=== PATIENT | female | born 1955 | race Caucasian/White ===

== ENCOUNTER 2024-10-28 07:39 | Observation (INO) ==
--- NOTE | 2024-10-13 10:13 | PAT Medication Instructions ---
Medication Instructions Date of Service October 13, 2024 Home Medications cholecalciferol (vitamin D3) 25 mcg (1,000 unit) capsule 25 mcg PO HS aspirin 81 mg chewable tablet 81 mg PO HS magnesium carb,citrate,oxide (Magnesium Complex) 600 mg PO HS multivitamin 1 tab PO HS phytosterol 300 mg-pantethine 100 mg capsule (CholestOff Complete) 1 cap PO HS turmeric root extract 500 mg tablet 500 mg PO HS ASK your prescriber and surgeon aspirin 81 mg chewable tablet 81 mg PO HS STOP taking 2 weeks before surgery (or as soon as possible if surgery is within 2 weeks) phytosterol 300 mg-pantethine 100 mg capsule (CholestOff Complete) 1 cap PO HS turmeric root extract 500 mg tablet 500 mg PO HS Take evening before surgery cholecalciferol (vitamin D3) 25 mcg (1,000 unit) capsule 25 mcg PO HS magnesium carb,citrate,oxide (Magnesium Complex) 600 mg PO HS multivitamin 1 tab PO HS MORNING OF SURGERY: NOTHING TO EAT OR DRINK AFTER MIDNIGHT Other Notes If you have any questions please call us at [phone] or [phone] or [phone] or [phone]
--- NOTE | 2024-10-14 14:39 | Anesthesiology Consultation ---
Date of Service October 14, 2024 Assessment & Plan (1) Encounter for pre-operative examination: - Infectious disease screening: Per assessment on 10/14/24- No known recent infectious disease contacts or current infectious disease symptoms. - Outpatient joint assessment: Pt currently scheduled for inpatient pathway. If surgeon requests review for outpatient joint pathway, patient is not recommended candidate for outpatient joint program from anesthesia standpoint based on available information. - Patient acceptable risk for surgery pending surgeon-ordered PCP preop evaluat ion ([facility], appt 10/19). Chart Review Chart Review: Patient seen in Pre Admission Testing Teaching & Discussion Pre-Anesthesia Teaching/Discussion Notes: Instructed NPO after midnight before surgery,except medications with 15 cc of water. Medication instructions provided according to the PAT guidelines. History Surgery Operation Date: 10/28/24 11:55 Proposed Procedures p Right Total Knee Arthroplasty - Ritchie Jarrell MD Height/Weight Height: 5 ft 4 in Weight: 119.7 kg Allergies Allergy/AdvReac Type Severity Reaction Status Date / Time No Known Allergies Allergy Verified 10/13/24 08:13 Medications Home Medications Medication Instructions Recorded Confirmed Last Taken cholecalciferol (vitamin D3) 25 25 mcg PO HS 09/07/24 10/13/24 Unknown mcg (1,000 unit) capsule aspirin 81 mg chewable tablet 81 mg PO HS 10/13/24 10/13/24 Unknown magnesium carb,citrate,oxide 600 mg PO HS 10/13/24 10/13/24 Unknown (Magnesium Complex) multivitamin 1 tab PO HS 10/13/24 10/13/24 Unknown phytosterol 300 mg-pantethine 100 1 cap PO HS 10/13/24 10/13/24 Unknown mg capsule (CholestOff Complete) turmeric root extract 500 mg tablet 500 mg PO HS 10/13/24 10/13/24 Unknown Past Medical History Medical History Morbid obesity Urinary incontinence Exercise / Class Metabolic Activity II 4-5 Yardwork/Stairs/Walk up hill (one FS: No CP, no SOB) Past Family History Family History Father Diabetes Father Hypertension Heart disease Kidney disease Mother Heart disease Sister Kidney transplanted Brother Prostate cancer Lung cancer Colorectal cancer Denies family history of Ovarian cancer Myocardial infarction Breast cancer Past Surgical History Surgical History Finger amputation, no complication right, first finger History of ankle surgery right- pins and screw due to fracture History of cataract surgery B/L History of cholecystectomy History of ear surgery x2 History of tonsillectomy and adenoidectomy Hx of colonoscopy Hx of varicose vein ligation vein ablation on bilat. legs Past Anesthesia History No Hx of Anesthesia Complications and No Family Hx of Anesthesia Complications History of PONV No Hx of PONV and No Hx of Motion Sickness Social History Smoking Status: Never smoker Do You Dip or Chew Tobacco: No Hx Alcohol Use: Yes Alcohol type: wine alcohol intake frequency: holidays/special occasions only Hx Substance Use: No substance use type: does not use Review of Systems Patient denies chest pain, shortness of breath, dyspnea on exertion, fever, chills, cough, wheezing, palpitations. Physical Exam Vital Signs BP 144/79 P 70 TEMP 98.1 SP02 96%RA RESP 16 Physical Full cervical extension range of motion. Full TMJ range of motion. TMD > 3.5 finger breaths Mallampati Score II Dentition: missing sides/molars Lungs: clear throughout to auscultation Cardiac: regular rate and rhythm, no murmurs noted Spine: normal Carotid arteries: negative bruit Extremities: no LE edema Lab Results Anesthesia Preop Results Results Anesthesia Widget: WBC 4.53 K/ul (4.8-10.8) L 10/14/24 Hgb 12.7 g/dl (12.0-16.0) 10/14/24 Hct 39.5 % (37.0-47.0) 10/14/24 Plt 193 K/uL (130-400) 10/14/24 Na 140 mmol/L (136-145) 10/14/24 K 4.3 mmol/L (3.5-5.1) 10/14/24 Cl 106 mmol/L (98-107) 10/14/24 CO2 29 mmol/L (21-32) 10/14/24 BUN 24 mg/dl (6-23) H 10/14/24 Creat 0.88 mg/dl (0.6-1.2) 10/14/24 Glucose Level 86 mg/dl (70-99(Fasting)) 10/14/24 PT 10.5 Seconds (9.0-12.0) 10/14/24 PTT 26 Seconds (21-31) 10/14/24 INR 1.0 (0.9-1.1) 10/14/24 Urine Color Yellow 10/14/24 Urine Appearance Clear (Clear) 10/14/24 Urine pH 5.5 (4.5-7.5) 10/14/24 Urine Specific Emblem 1.027 (1.000-1.030) 10/14/24 Urine Protein Trace (Negative) H 10/14/24 Urine Glucose (UA) Negative (Negative) 10/14/24 Urine Ketones Negative (Negative) 10/14/24 Urine Blood Negative (Negative) 10/14/24 Urine Nitrite Negative (Negative) 10/14/24 Urine Bilirubin Negative (Negative) 10/14/24 Urine Urobilinogen Negative (Negative) 10/14/24 Urine Leukocyte Esterase Negative (Negative) 10/14/24 Urine WBC (Auto) 0-5 /hpf (0-5) 10/14/24 Urine RBC (Auto) 0-2 /hpf (0-2) 10/14/24 Urine Hyaline Casts (Auto) 0-2 /lpf (0-2) 10/14/24 Urine Epithelial Cells (Auto) 3-5 /hpf (0-2) H 10/14/24 Urine Bacteria (Auto) None Seen (None Seen) 10/14/24 Blood Type A Positive 10/14/24 Antibody Screen NEGATIVE 10/14/24 Testing Electrocardiogram Date: 10/14/24 NSR at 68bpm. Low voltage QRS. Chest X-Ray Date: 10/14/24 FINDINGS: Mild cardiomegaly. Pulmonary vasculature appear within normal limits. Chronic appearing interstitial markings. No infiltrate, pleural effusion or pneumothorax. No acute osseous abnormality evident. IMPRESSION: No acute cardiopulmonary process.
--- NOTE | 2024-10-25 13:30 | History & Physical Report ---
Date of Service October 25, 2024 Assessment & Plan (1) Bilateral primary osteoarthritis of knee: Plan: Patient is scheduled for staged bilateral knee replacement starting with the right knee with right knee replacement on this admission. History of Present Illness Chief Complaint: Severe bilateral knee pain Primary Care Provider: NEGRO Mortensen 69-year-old female with chronic progressive osteoarthritis in both of her knees. She has failed conservative management including steroid injections Visco suppl ement injections, exercise program. Patient denies headaches, sweats, fevers, chills, double vision, blurred vision, cough, sore throat, dysphagia, chest pain, sob, wheezing, n/v/d/c, numbness, tingling, fatigue, urinary symptoms, mood disorders. Allergies Allergy/AdvReac Type Severity Reaction Status Date / Time No Known Allergies Allergy Verified 10/19/24 14:57 Home Medications Medication Instructions Recorded Confirmed Type cholecalciferol (vitamin D3) 25 25 mcg PO HS 09/07/24 10/19/24 History mcg (1,000 unit) capsule aspirin 81 mg chewable tablet 81 mg PO HS 10/13/24 10/19/24 History magnesium carb,citrate,oxide 600 mg PO HS 10/13/24 10/19/24 History (Magnesium Complex) multivitamin 1 tab PO HS 10/13/24 10/19/24 History phytosterol 300 mg-pantethine 100 1 cap PO HS 10/13/24 10/19/24 History mg capsule (CholestOff Complete) Past Med/Surg History Problem List (Updated 10/25/24 @ 13:29 by Ritchie Jarrell MD) Bilateral primary osteoarthritis of knee Encounter for pre-operative examination Medical History Morbid obesity Urinary incontinence Surgical History Hx of varicose vein ligation vein ablation on bilat. legs Hx of colonoscopy History of cataract surgery B/L Finger amputation, no complication right, first finger History of ankle surgery right- pins and screw due to fracture History of cholecystectomy History of ear surgery x2 History of tonsillectomy and adenoidectomy Family History Father Diabetes Father Hypertension Heart disease Kidney disease Mother Heart disease Sister Kidney transplanted Brother Prostate cancer Lung cancer Colorectal cancer Denies family history of Ovarian cancer Myocardial infarction Breast cancer Social History Smoking Status: Never smoker Second Hand Exposure: No; Do You Dip or Chew Tobacco: No; Tobacco Cessation Education Requested by Patient: No Hx Alcohol Use: Yes Alcohol type: wine Hx Substance Use: No Preferred Language: Mohawk Communication Ability: Effective Visual Impairment: No Limitations Hearing Ability: Hard of Hearing Academic Intern Required: No Beliefs That Will Affect Care: None marital status: Current Living Situation: Spouse Current Living Situation Comment: and daughter current occupational status: 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, 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, 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 Other Information That Helps Us Care for You: No Feels Safe at Home: Yes Safety Concerns: Feels Safe At This Time Childhood Exposure to Second-Hand Smoke: No Dental Care, Regularly: Yes Sunscreen Use: Yes Assistive Devices: Cane and Glasses Assistive Devices Comment: reading glasses prn Review of Systems All systems reviewed & are unremarkable except as noted in HPI & below Physical Exam Constitutional: WD/WN, vitals as above Respiratory: normal respiratory effort; no respiratory distress Cardiovascular: Rate/Rhythm: regular rate and regular rhythm Musculoskeletal: Knee exam demonstrates bilateral varus knees with moderate swelling and knee effusions with crepitation patellofemoral joint and medial joint line tenderness bilaterally with 15 to 100 degrees on the right knee and 0 to through 110 degrees range of motion on the left knee. Patient has some venous stasis disease without venous stasis dermatitis with varicose veins bilaterally and otherwise normal neurovascular exam. Skin: no rashes, warm and dry Neurologic: normal touch/pain/proprioception Psychiatric: A+Ox3, euthymic affect Results & Data Diagnostic Findings Radiographs demonstrate [id number] medial compartment bilaterally with some subluxation of the femur medially on the tibia of the right knee. There are moderate patellofemoral osteoarthritis with patellofemoral osteophytes bilaterally. Soft tissue obesity.
[~2024-10-28 07:39] MED LIST: BUPIVACAINE 0.5 % 5 MG/1 ML PF 10ML VIAL ONE; DEXAMETHASONE SOD INJ 4 MG/ML VIAL ONE; LIDOCAINE 2% 2 ML VIAL/AMP(20MG/ML) INFIL ONE; MIDAZOLAM HCL 1 MG/ML 2ML VIAL ONE; ONDANSETRON INJ 2 MG/ML 2 ML VIAL ONE; PROPOFOL IV EMULSION 10 MG/ML 20 ML VIAL IV ONE; ROPIVACAINE 0.5% 5 MG/ML 30 ML VIAL ONE; fentaNYL citrate PF 100 MCG/2 ML VIAL ONE
--- NOTE | 2024-10-28 07:59 | History & Physical Bridge Note ---
Date of Service October 28, 2024 History & Physical Bridge Note I have examined the patient, reviewed the History & Physical and in the interval since the performance of the History & Physical I have noted the following changes of clinical significance: no changes noted
[2024-10-28] MEDS: LR 60ML/HR IV SCH (08:35)
[2024-10-28] MEDS: ACETAMINOPHEN 500 MG TAB PO SCH ×2 (08:35→15:24)
[2024-10-28] MEDS: FAMOTIDINE 20 MG TAB PO SCH (08:36)
[2024-10-28] MEDS: METOCLOPRAMIDE HCL 10 MG TABLET PO SCH (08:36)
[2024-10-28] MEDS: SODIUM CHLORIDE 0.9% 1,000 ML IV SCH (08:36)
[2024-10-28] MEDS: GABAPENTIN 300 MG CAP PO SCH (08:36)
[2024-10-28] MEDS: dexAMETHasone**PF** 10 MG/ML VIAL IV SCH (08:36)
[2024-10-28] MEDS: CeleBREX 200 MG CAP PO SCH (08:36)
[2024-10-28] MEDS: TRANEXAMIC ACID 1,000 MG **IV Pre-op IV SCH (10:32)
[2024-10-28] MEDS: ceFAZolin 3000MG 3,000 MG/72.5 ML BAG IV SCH (10:43)
[2024-10-28] MEDS: ROPIVACAINE 0.5% HCL/PF 246 MG, Ketorolac (*for OR use only*) 30 MG in SODIUM CHLORIDE ... INFIL SCH (11:27)
[2024-10-28] MEDS: ORTHO JOINT ANESTHETIC ONE (11:27)
[2024-10-28] MEDS: TRANEXAMIC ACID 1,000 MG **IV Intra-op IV SCH (13:12)
--- NOTE | 2024-10-28 13:16 | Post Operative Brief Note ---
Immediate Post Op Note Date of Surgery October 28, 2024 Pre & Post Diagnosis Operation Date: 10/28/24 09:45 Pre-Op Diagnosis: Right Knee Osteoarthritis, morbid obesity BMI 46.0 Post-Op Diagnosis: Right Knee Osteoarthritis, morbid obesity BMI 46.0 I identified the patient and participated in the time-out.: Yes Procedure Operation Date: 10/28/24 09:45 Actual Procedures p Right Total Knee Arthroplasty(Right), application hossein and Acticoat superficial wound VAC, increased difficulty morbid obesity BMI 46.0- Ritchie Jarrell MD Surgeon Ritchie Jarrell MD Customer Service Trainer Amandeep OLVERA Estimated Blood Loss 10 Findings Consistent with Post-Op Diagnosis Specimens Bone cuts Drains Hemovac Drain Anesthesia Type MAC Spinal Regional Complications none Disposition Disposition: Recovery Room Overlapping Procedure I was present for: the critical portions of procedure.
--- NOTE | 2024-10-28 14:34 | XRay Report ---
XR knee RT 1 or 2V routine CLINICAL HISTORY: Surgical Post Op COMPARISON: None FINDINGS: Alignment of the total right knee arthroplasty is anatomic. There is no periprosthetic fra cture or unexpected radiopaque foreign body. Drains and skin heather are present. IMPRESSION: Expected findings following total right knee arthroplasty. ACT 112: Negative or not required by law. Electronically signed by: Dony Kilgore M.D. 10/28/2024 2:33 PM
--- NOTE | 2024-10-28 14:38 | Anesthesiology Progress Note ---
Date of Service October 28, 2024 Anesthesia Post Procedure Vital Signs Vital Signs: Temp Pulse Resp BP Pulse Ox O2 Del Method 10/28/24 14:35 60 12 104/60 94 Room Air 10/28/24 14:25 58 L 12 112/70 92 Room Air 10/28/24 14:15 61 13 117/67 92 Room Air 10/28/24 14:05 59 L 12 111/65 93 Room Air 10/28/24 13:55 36.4 C L 63 12 104/69 95 Room Air 10/28/24 08:00 36.5 C 71 20 146/81 H 96 Room Air Pain Intensity Right Knee: Pain Intensity: 9 Notes Mental Status: alert / awake / arousable Patient Amnestic to Procedure: Yes Nausea / Vomiting: adequately controlled Pain: adequately controlled Airway Patency, RR, SpO2: stable & adequate BP & HR: stable & adequate Hydration State: stable & adequate Neuraxial Anesthesia: was administered and sensory block is resolving Anesthetic Complications: no major complications apparent
[2024-10-28] MEDS ORDERED: HYDROmorphone INJ 0.5 MG/0.5 ML SYR IV PRN (14:55)
[2024-10-28] MEDS ORDERED: bisacodyL 10 MG SUPP PR PRN (14:55)
[2024-10-28] MEDS ORDERED: diphenhydrAMINE Capsule 25 MG CAP PO PRN (14:55)
[2024-10-28] MEDS ORDERED: ALUMINUM/MAGNESIUM SUSP 30 ML UDC PO PRN (14:55)
[2024-10-28] MEDS ORDERED: MAGNESIUM HYDROXIDE SUSP 30 ML UDC PO PRN (14:55)
[2024-10-28] MEDS ORDERED: NALOXONE HCL 0.4 MG/1 ML VIAL/CARP IV PRN (14:55)
[2024-10-28] MEDS ORDERED: ONDANSETRON INJ 2 MG/ML 2 ML VIAL IV PRN (14:55)
[2024-10-28] MEDS ORDERED: METOCLOPRAMIDE HCL INJ 5 MG/ML 2 ML VIAL IV PRN (14:55)
[2024-10-28] MEDS: LR 500ML BOLUS, THEN 15ML/HR IV SCH (15:13)
[2024-10-28] MEDS: oxyCODONE HCL IR 5 MG TAB (IMMEDIATE RELEASE) PO PRN (16:58)
--- NOTE | 2024-10-28 17:45 | Operative Report ---
Post Operative Report Pre & Post Diagnosis Operation Date: 10/28/24 09:45 Pre-Op Diagnosis: Right Knee Osteoarthritis, morbid obesity BMI 46.0 Post-Op Diagnosis: Right Knee Osteoarthritis I identified the patient and participated in the time-out.: Yes Procedure Operation Date: 10/28/24 09:45 Actual Procedures p Right Total Knee Arthroplasty(Right), coco and Acticoat superficial wound VAC application, increased difficulty more obesity BMI 46.0- Ritchie Jarrell MD Surgeon Ritchie Jarrell MD Data Analysis Intern Amandeep OLVERA Estimated Blood Loss 10 Findings Consistent with Post-Op Diagnosis Specimens Bone cuts Drains 2 Hemovac Anesthesia Type MAC Spinal Regional Complications none Disposition Disposition: Recovery Room Indications 69-year-old female with severe bilateral knee osteoarthritis failed conservative management. Radiographs demonstrate she has patellofemoral medial compartment osteoarthritis [id number] medial compartment both knees with varus knees. Patient here for staged bilateral knee replacement starting with the right knee. Description of Procedure Patient taken to the operating room the size under spinal MAC regional block anesthesia. Patient was placed supine on the operating table. A pneumatic tourniquet was placed about the right obese upper thigh. The right lower extremity was prepped and draped in sterile fashion. Knee exam demonstrated very obese leg with 0 through 80 degrees range of motion and no pseudolaxity or instability.. The leg was elevated exsanguinated with an Esmarch bandage and pneumatic tourniquet was raised to 350 millimeters of mercury. Skin incised sharply in longitudinal fashion. Subcutaneous flaps elevated. Incision was made through the medial retinaculum extending up in the mid third of the quadriceps tendon and down to the medial tibial tubercle. Intra-articular findings demonstrated medial compartment and patellofemoral osteoarthritis with [id number] medial compartment and some tricompartmental arthritis with fairly large patellofemoral osteophytes.. The [employer] total knee arthroplasty system was used. To expose the knee the infrapatellar fat pad was resected. The meniscal remnants and cruciate ligaments were resected. The anterior fat pad over the femur in the area of the location of the anterior flange of the femoral component was resected. The lateral synovial bands were released. The femur was exposed. An intramedullary drill hole was made into the canal. A guide butch was placed. Distal femoral cutting guide was adjusted to resect a 5 degree valgus cut with 8 millimeters distal femur resected. The knee was extended and a subperiosteal peel lateral release was performed around the patella. Patella width was measured and width was reproduced using a freehand cut technique and a 33 x 9 symmetrical patella component. The 3 drill holes were made and the excess lateral facet was beveled off to prevent any imp ingement. Attention was taken back to the femur which was exposed with retractors and the femoral sizing guide was pinned in position. The drill holes were placed in 3 of external rotation to match the epicondylar axis. The femur sized for a 4 component. This required using the +1.5 offset guide to create a more anterior cut in order to prevent notching. The medial lateral width was more appropriately sized for than 5. The the size 4-in-1 cutting block was then placed and then the anterior posterior and chamfer cuts are made. The tibia was then subluxed. The external tibial cutting guide was adjusted to make a perpendicular cut to the long axis of the tibia below the most deficient bone loss side. Cut was adjusted for slope. A lamina microbiological laboratory technician was used and the flexion extension gaps were balanced. Minor medial releases were required. All posterior osteophytes removed. All meniscal remnants were resected. The tibia exposed and the trial tibial component size 4 was externally rotated in line with the tibial tubercle and pinned in position. The drill and punch for stem was used. The notch cutting device was centered appropriately and the femoral notch cut was made. The femoral trial was inserted. Trial tibial inserts were placed and size 9 gave balanced ligaments through flexion and extension. Patella tracking was assessed. The patella tracked centrally. The trial components were then removed and the orthomix anesthetic cocktail was injected per protocol. The knee was then copiously irrigated with pulsatile lavage saline solution. Final components were then cemented with Refobacin cement. Xperience irrigation placed over metal compoments prior to polyethylene insertion. Final components were [employer] triathlon size 4 right posterior stabilized femoral component, a 4 universal tibial baseplate with a cemented stem and a 4 x 9 mm X.3 polyethylene tibial bearing insert which is posterior stabilized.. After the cement cured further pulsatile lavage irrigation was then performed with Xperience and 2 Hemovac drains were brought out laterally. The distal quadriceps tendon and medial retinaculum were repaired with [id number] #2 FiberWire sutures and an additional [id number] #2 FiberWire suture was placed at the apex of the quadriceps tendon split and another at the level of the tibial polyethylene below the patella. A 0 strata fix running locking suture was placed from the superior quadriceps tendon closure down to the inferior pole the patella and then the inferior most medial retinaculum below the patella was repaired with [id number] #1 Vicryl sutures. The knee was taken through full range of motion and the repair was secure. Knee range of motion was 0 through 130 degrees. The subcutaneous tissues were closed with 2-0 Vicryl sutures. Skin was closed with surgical heather. Coco and Acticoat superficial wound VAC was applied. There was 30- minute increased length of time due to her morbid obesity with increased di fficulty of the procedure including all aspects of the procedure. The patient tolerated the procedure well. Amandeep OLVERA was my physician retail event assistant who participated as executive assistant and was involved in all aspects of the procedure including patient positioning prepping and draping,leg positioning ,soft tissue retraction and instrument management and participated in the closing and super ficial wound VAC application and will participate in postoperative care of the patient. The patient tolerated the procedure well. I attest to the content of the Intraoperative Record and any orders documented therein. Any exceptions are noted below.
[2024-10-28 18:14] VITALS: RESP 16
[2024-10-28] MEDS: ceFAZolin 2000MG 2,000 MG/15 ML SYR IV SCH (18:38)
[2024-10-28] MEDS: TRANEXAMIC ACID / 0.7% NACL 1,000 MG/100 ML BAG IV SCH (18:45)
[2024-10-28] MEDS: DOCUSATE SODIUM 100 MG CAP PO SCH (20:35)
[2024-10-28] MEDS: SENNA 8.6 MG TAB PO SCH (20:36)
[2024-10-28] MEDS: MULTIVITAMIN TAB PO SCH (20:36)
[2024-10-28] MEDS: CHOLECALCIFEROL 25 MCG (1000 UNITS) TAB PO SCH (20:37)
[2024-10-28] MEDS: MAGNESIUM OXIDE 400 MG TAB PO SCH (20:37)
[2024-10-28] MEDS ORDERED: PANTETHINE PO SCH (21:00)
[2024-10-28] MEDS ORDERED: PHYTOSTEROL PO SCH (21:00)
[2024-10-28] MEDS ORDERED: [UNRECOGNIZED DRUG - OTHER] PO SCH (21:00)
[2024-10-28] MEDS: KETOROLAC TROMETHAMINE 15 MG/ML VIAL IV PRN (23:25)
[2024-10-29 07:16] LABS: Hematocrit (blood only) 31.6 % (37.0-47.0); Hemoglobin 10.8 g/dl (12.0-16.0); Mean Corpuscular Hemoglobin 30.8 pg (25.0-34.0); Mean Corpuscular Hgb Conc 34.2 g/dL (32.0-36.0); Mean Platelet Volume 10.2 fL (9.4-12.4); Platelet Count 141 K/uL (130-400); RDW Coefficient of Variation 12.8 % (11.5-14.5); RDW Standard Deviation 41.8 fL (36.4-46.3); Red Blood Count 3.51 M/uL (4.20-5.40); White Blood Count 6.94 K/ul (4.8-10.8)
[2024-10-29 07:25] LABS: BUN Creatinine Ratio 26.2 (10-20); Calcium 8.1 mg/dl (8.6-10.3); Creatinine Clr Calc Pharmacy 81.3 ml/min; Potassium 3.9 mmol/L (3.5-5.1)
[2024-10-29] MEDS: dexAMETHasone 10 MG in SYRINGE 0 ML IV SCH (07:40)
[2024-10-29] MEDS: ASPIRIN 81 MG ECTAB PO SCH (07:40)
[2024-10-29 08:06] VITALS: BP 112/67; PULSE 64; TEMP 97.4; O2SAT 99
--- NOTE | 2024-10-29 08:25 | Orthopedic Progress Note ---
Date of Service October 29, 2024 Assessment & Plan (1) Bilateral primary osteoarthritis of knee: Plan: Patient is scheduled for staged bilateral knee replacement starting with the right knee after which she is postop day #1. Postoperative course going well so far. Minimal drainage from Hemovac so this can be discontinued. Patient wants home PT so we will have case management set this up and she can be discharged if this is set up. Admission and Anticipated Discharge Date Admission Date: October 28, 2024 Subjective Patient feels well, no significant pain. Review of Systems Review of Systems: Feels well, noncontributory Physical Exam Musculoskeletal: Dressing dry and intact. Coco functional. Independent straight leg raise. Dis monty circulation sensorimotor exam intact. Results & Data Vital Signs (Past 12 Hours) Vital Signs Temp Pulse Resp BP Pulse Ox O2 Del Method 10/29/24 08:05 36.3 C L 64 16 112/67 99 Room Air 10/28/24 20:29 36.4 C L 60 16 138/86 98 Room Air
[2024-10-29] MEDS ORDERED: CeleBREX 200 MG CAP PO SCH (21:00)
== END 2024-10-29 12:52 | disposition home health service (06) ==
LOC: ASU 07:39 → 3N 07:39